=== PATIENT | female | born 1980 | race American Indian/Alaskan Native ===

== ENCOUNTER 2018-10-19 18:28 | Emergency (ER) | payer OTHER ==
--- NOTE | 2018-10-19 18:34 | Emergency Department Report ---
Blank Doc - Documentation Documentation: This is a 37-year-old female that presents with right bicep muscle pain. Stated it started after working out and believes she pulled it. Denies any body aches or any other symptoms. This initial assessment/diagnostic orders/clinical plan/treatment(s) is/are subject to change based on patient's health status, clinical progression and re- assessment by fellow clinical providers in the ED. Further treatment and workup at subsequent clinical providers discretion. Patient/guardians urged not to elope from the ED as their condition may be serious if not clinically assessed and managed. Initial orders include: 1- Patient sent to [facility] for further evaluation and treatment
[2018-10-19 18:35] VITALS: BP 132/80
--- NOTE | 2018-10-19 22:38 | Emergency Department Report ---
ED Upper Extremity Inj HPI - General Chief Complaint: Extremity Injury, Upper Stated Complaint: RT UPPER FOREARM PAIN Time Seen by Provider: 10/19/18 18:33 Source: patient Mode of arrival: Ambulatory Limitations: No Limitations - History of Present Illness Initial Comments: This is a 37-year-old -[place] female presents with pain to the right bi ceps for 2 days. Patient states she worked out on Tuesday woke up Tuesday morning unable to right arm. Patient states he feels like his spasming and biceps. When she experienced her arm. She denies numbness or tingling, swelling, bruising, weakness or paresthesias. Complaint: Injury to:: right Onset/Timin -: days(s) Other Extremity Injury: Arm: Right Other Injuries: none Handedness: right Place: other (gym) Severity scale (0 -10): 8 Improves With: none Worsens With: movement of extremity Context: injury Associated Symptoms: denies other symptoms Treatments Prior to Arrival: cold therapy, NSAIDS - Related Data Previous Rx's Medication Instructions Recorded Last Taken Type Ibuprofen [Motrin 800 MG tab] 800 mg PO Q8HR PRN #20 tablet 10/19/18 Unknown Rx Menthol/Camphor [Peggs Garfield 18 gm TP Q2H #1 oint...g. 10/19/18 Unknown Rx Ointment] methOCARBAMOL [Robaxin TAB] 500 mg PO Q6H PRN #15 tablet 10/19/18 Unknown Rx Allergies Allergy/AdvReac Type Severity Reaction Status Date / Time cephalexin [From Keflex] Allergy Unknown Verified 10/19/18 18:30 ED Review of Systems ROS: Stated complaint: RT UPPER FOREARM PAIN Other details as noted in HPI Constitutional: denies: chills, fever Respiratory: denies: cough, shortness of breath, wheezing Cardiovascular: denies: chest pain, palpitations Gastrointestinal: denies: abdominal pain, nausea, diarrhea Musculoskeletal: arthralgia (right upper extremity pain). denies: back pain, joint swelling Skin: denies: rash, lesions Neurological: denies: headache, weakness, paresthesias Psychiatric: denies: anxiety, depression ED Past Medical Hx - Social History Smoking Status: Never Smoker Substance Use Type: Alcohol - Medications Home Medications: Home Medications Medication Instructions Recorded Confirmed Last Taken Type Ibuprofen [Motrin 800 MG tab] 800 mg PO Q8HR PRN #20 tablet 10/19/18 Unknown Rx Menthol/Camphor [Peggs Garfield 18 gm TP Q2H #1 oint...g. 10/19/18 Unknown Rx Ointment] methOCARBAMOL [Robaxin TAB] 500 mg PO Q6H PRN #15 tablet 10/19/18 Unknown Rx ED Physical Exam - General Limitations: No Limitations General appearance: alert, in no apparent distress - Respiratory Respiratory exam: Present: normal lung sounds bilaterally. Absent: respiratory distress - Cardiovascular Cardiovascular Exam: Present: regular rate, normal rhythm. Absent: systolic murmur, diastolic murmur, rubs, gallop - GI/Abdominal GI/Abdominal exam: Present: soft, normal bowel sounds - Expanded Upper Extremity Exam Right Shoulder Exam: Present: normal inspection, full ROM Upper Arm exam: Present: tenderness (tenderness on palpation of the biceps). Absent: full ROM, swelling (Limited range of motion), abrasion, laceration, ecchymosis, deformity, crepidus, dislocation, erythema Elbow exam: Present: normal inspection, full ROM Forearm Wrist exam: Present: normal inspection, full ROM Hand Wrist exam: Present: normal inspection, full ROM Neuro motor exam: Present: wrist extension intact, thumb opposition intact, thumb IP flexion intact, thumb adduction intact, fingers 2-5 abduction intact Neurosensory exam: Present: radial nerve intact, ulnar nerve intact, median nerve intact Vascular: Present: normal capillary refill (+2), radial pulse (+2) - Neurological Exam Neurological exam: Present: alert, oriented X3, normal gait - Psychiatric Psychiatric exam: Present: normal affect, normal mood - Skin Skin exam: Present: warm, dry, intact, normal color. Absent: rash ED Course Vital Signs 10/19/18 18:33 Temperature 98.0 F Pulse Rate 74 Respiratory 16 Rate Blood Pressure 132/80 O2 Sat by Pulse 99 Oximetry ED Medical Decision Making - Medical Decision Making Patient was examined by me. Vitals are normal and patient is in no acute distress. Patient informed of results. Start ibuprofen, Robaxin, and tigerbum for pain. Plan discussed with patient to discharge home and treat outpatient. He agrees with ER plan. Patient discharged home in stable condition. Follow up with PCP in 2-3 days. Critical care attestation.: If time is entered above; I have spent that time in minutes in the direct care of this critically ill patient, excluding procedure time. ED Disposition Clinical Impression: Right arm pain Strain of right biceps muscle Qualifiers: Encounter type: initial encounter Qualified Code(s): S46.211A - Strain of muscle, fascia and tendon of other parts of biceps, right arm, initial encounter Disposition: - TO HOME OR SELFCARE Is pt being admited?: No Does the pt Need Aspirin: No Condition: Stable Instructions: Muscle Strain (ED) Additional Instructions: Rest Use ice or heat on affected area for 20 minutes and off for 2 hours. Take pain medication as needed for pain. Don't drive or operate heavy machinery while taking muscle relaxers because they may cause drowsiness. Follow up with Primary Care Provider in 2-3 days. Prescriptions: Ibuprofen [Motrin 800 MG tab] 800 mg PO Q8HR PRN #20 tablet PRN Reason: Pain , Severe (7-10) methOCARBAMOL [Robaxin TAB] 500 mg PO Q6H PRN #15 tablet PRN Reason: Muscle Spasm Menthol/Camphor [Peggs Garfield Ointment] 18 gm TP Q2H #1 oint...g. Referrals: NENA CARD MD [Primary Care Provider] - 3-5 Days [facility] [Outside] - 3-5 Days [facility] [Outside] - 3-5 Days Time of Disposition: 22:47
== END 2018-10-19 22:53 | disposition home or self-care (01) ==
LOC: ED 18:28
DX: S46.211A Strain of muscle, fascia and tendon of other parts of biceps, right arm, initial encounter (principal); X58.XXXA Exposure to other specified factors, initial encounter; Y93.89 Activity, other specified; Y92.89 Other specified places as the place of occurrence of the external cause; Y99.8 Other external cause status
CPT/HCPCS: 99282

== ENCOUNTER 2021-03-02 12:47 | Outpatient (CLI) | payer OTHER ==
--- NOTE | 2021-03-02 13:54 | XRay Report ---
CHEST 2 VIEWS INDICATION / CLINICAL INFORMATION: Z01.812. COMPARISON: None available. FINDINGS: SUPPORT DEVICES: None. HEART / MEDIASTINUM: No significant abnormality. LUNGS / PLEURA: No significant pulmonary or pleural abnormality. No pneumothorax. ADDITIONAL FINDINGS: No significant additional findings. IMPRESSION: 1. No acute findings. Signer Name: Enoch Flanagan MD Signed: 03/02/2021 1:50 PM Workstation Name: [id number]
== END 2021-03-02 12:48 | disposition home or self-care (01) ==
LOC: XRAY 12:47
DX: Z01.818 Encounter for other preprocedural examination (principal)
CPT/HCPCS: 71046